=== PATIENT | female | born 1955 | race Caucasian/White ===

== ENCOUNTER → 2017-01-27 | Outpatient (CLI) | payer OTHER ==
--- NOTE | 2017-01-27 13:02 | XR ---
EXAMINATION TYPE: XR abdomen 2V DATE OF EXAM: 01/27/2017 COMPARISON: NONE HISTORY: Right lower quadrant pain TECHNIQUE: One view abdominal series FINDINGS: The osseous structures are intact. The bowel gas pattern is nonspecific. Lung bases are clear. Nons pecific calcification in the left upper quadrant. Outside the course of the kidney. Calcifications in pelvis are nonspecific. Degenerative change lower lumbar spine. IMPRESSION: 1. Nonspecific abdomen. Nonspecific calcifications in the pelvis and left upper quadrant. Correlate with CT scan as clinically warranted.
== END | disposition home or self-care (01) ==
LOC: RADXRYALE 12:37
PROVIDERS: ATTEND Physician Assistant Medical
DX: R10.813 Right lower quadrant abdominal tenderness (principal); R19.7 Diarrhea, unspecified
CPT/HCPCS: 74020

== ENCOUNTER → 2018-05-22 | Outpatient (CLI) | payer OTHER ==
[2018-05-22 12:59] LABS: Basophils % (A) 1 %; Eosinophils # (A) 0.4 k/uL (0-0.7); Eosinophils % (A) 5 %; HCT 42.4 % (34.0-46.0); HGB 14.4 gm/dL (11.4-16.0); Lymphocytes # (A) 1.6 k/uL (1.0-4.8); Lymphocytes % (A) 20 %; MCH 32.3 pg (25.0-35.0); MCHC 34.1 g/dL (31.0-37.0); MCV 94.8 fL (80.0-100.0); Mean Platelet Volume 7.5; Monocytes # (A) 0.4 k/uL (0-1.0); Monocytes % (A) 5 %; Neutrophils # (A) 5.3 k/uL (1.3-7.7); Neutrophils % (A) 68 %; Platelet Count 208 k/uL (150-450); RBC 4.47 m/uL (3.80-5.40); RDW 12.9 % (11.5-15.5); WBC 7.9 k/uL (3.8-10.6)
--- NOTE | 2018-05-22 14:57 | NM ---
EXAMINATION TYPE: NM bone/joint limited DATE OF EXAM: 05/22/2018 COMPARISON: NONE HISTORY: M25.561 Pain in right knee;Attn; Right knee 25.8 mCi was administered of technetium 99m MDP multiple whole body images were obtained as well as s pot images of the knees. FINDINGS: There is degenerative uptake about the shoulders, sternoclavicular joints, lower lumbar spine, hips a nd mid feet compatible with degenerative uptake. Bilateral total knee arthroplasty defects are noted. There is increased uptake along the tibial component of the right knee prosthesis which may reflect infection or loosening. No abnormal femoral uptake seen. No intense uptake to suggest fracture or les ion. IMPRESSION: 1. Degenerative uptake. 2. Increased uptake along the tibial component of the right total knee arthroplasty which may reflect loosening or infection. Correlate clinically.
[2018-05-22 15:31] LABS: Erythrocyte Sedimentation Rate 14 mm/hr (0-20)
== END ==
LOC: RADNMMAIN 10:24
PROVIDERS: ATTEND Orthopaedic Surgery
DX: R93.7 Abnormal findings on diagnostic imaging of other parts of musculoskeletal system (principal); Z47.1 Aftercare following joint replacement surgery; M25.561 Pain in right knee; M25.661 Stiffness of right knee, not elsewhere classified; Z96.651 Presence of right artificial knee joint
CPT/HCPCS: 85652; 85025; 86140; 78300; 36415; A9503

== ENCOUNTER → 2018-07-05 | Outpatient (CLI) | payer OTHER ==
[2018-07-05 16:32] LABS: ALT 36 U/L (9-52); AST 24 U/L (14-36); Alkaline Phosphatase 89 U/L (38-126); Anion Gap 10 mmol/L; Blood Urea Nitrogen 11 mg/dL (7-17); Calcium 9.8 mg/dL (8.4-10.2); Carbon Dioxide 31 mmol/L (22-30); Chloride 97 mmol/L (98-107); Glucose 314 mg/dL (74-99); Potassium 3.5 mmol/L (3.5-5.1); Sodium 138 mmol/L (137-145); Total Bilirubin 0.8 mg/dL (0.2-1.3); Total Protein 6.7 g/dL (6.3-8.2)
[2018-07-05 16:34] LABS: Partial Thromboplastin Time 24.1 sec (22.0-30.0); Prothrombin Time 10.3 sec (9.0-12.0)
[2018-07-05 16:47] LABS: HGB 14.6 gm/dL (11.4-16.0); MCH 32.6 pg (25.0-35.0); MCHC 33.9 g/dL (31.0-37.0); MCV 95.9 fL (80.0-100.0); Mean Platelet Volume 7.5; Platelet Count 275 k/uL (150-450); RBC 4.48 m/uL (3.80-5.40); RDW 12.6 % (11.5-15.5); WBC 8.9 k/uL (3.8-10.6)
[2018-07-05 17:34] LABS: Appearance,Urine Clear (Clear); Bilirubin,Urine Negative (Negative); Blood,Urine Negative (Negative); Color,Urine Yellow; Glucose,Urine (UA) 4+ (Negative); Ketones,Urine Negative (Negative); Leukocyte Esterase,Urine Negative (Negative); Nitrite,Urine Negative (Negative); PH, Urine 5.5 (5.0-8.0); Protein,Urine Negative (Negative); Specific Gravity,Urine 1.025 (1.001-1.035); Urobilinogen,Urine <2.0 mg/dL (<2.0)
== END | disposition home or self-care (01) ==
LOC: LABPAT 15:47
PROVIDERS: ATTEND Orthopaedic Surgery
DX: Z01.812 Encounter for preprocedural laboratory examination (principal)
CPT/HCPCS: 36415; 80053; 81003; 85027; 85610; 85730; 87070

== ENCOUNTER 2018-07-16 11:14 | Inpatient (IN) | payer OTHER ==
[~2018-07-16 11:14] MED LIST: ACETAMINOPHEN TAB 500 MG TAB PO ONE; DEXAMETHASONE SOD PHOSPHATE 10 MG/ML 1 ML VIAL IV ONE; LIDOCAINE 1% 20 ML VIAL (10MG/ML) FOR IV START INTRADERMA PRN; MELOXICAM 7.5 MG TAB PO ONE; MIDAZOLAM 2 MG/2 ML VIAL IV PRN; ONDANSETRON 4 MG/2 ML VIAL IVP ONE; ROPIVACAINE 246.25 MG, EPINEPHrine 0.5 MG, KETOROLAC 30 MG, cloNIDine HCL/PF 80 MCG, WA... MISCELLANE ONE; TRANEXAMIC ACID 1,000 MG in SODIUM CHLORIDE 0.9% 100 ML IVPB ONE; ceFAZolin 3 GM in SODIUM CHLORIDE 0.9% 100 ML IVPB ONE; fentaNYL (PF) 50 MCG/ML 2 ML AMP IV PRN
[2018-07-16] MEDS: LACTATED RINGERS 1,000 ML IV SCH (11:40)
[2018-07-16 11:43] LABS: Glucose,Whole Blood 210 mg/dL (75-99)
[2018-07-16] MEDS ORDERED: INSULIN ASPART (NovoLOG) 100 UNIT/ML VIAL SQ ONE (12:16)
[2018-07-16] MEDS ORDERED: NA PHOS,M-B/NA PHOS,DI-BA 133 ML ENEMA RECTAL PRN (13:00)
[2018-07-16] MEDS ORDERED: NALOXONE 0.4 MG/ML 1 ML VIAL IV PRN (13:00)
[2018-07-16] MEDS ORDERED: DIAZEPAM 5 MG TAB PO PRN (13:00)
[2018-07-16] MEDS ORDERED: MAGNESIUM HYDROXIDE 2,400 MG/10 ML CUP PO PRN (13:00)
[2018-07-16] MEDS ORDERED: HYDROmorphone 1 MG/ML 1 ML SYRINGE IVP PRN (13:00)
[2018-07-16] MEDS ORDERED: ONDANSETRON 4 MG/2 ML VIAL IVP PRN (13:00)
[2018-07-16] MEDS ORDERED: BISACODYL 10 MG SUPP RECTAL PRN (13:00)
[2018-07-16] MEDS ORDERED: HYDROmorphone 0.5 MG/0.5 ML SYRINGE IVP PRN ×2 (13:00)
[2018-07-16] MEDS ORDERED: HYDROcodone/APAP 5-325MG 1 EACH TAB PO PRN (13:00)
[2018-07-16] MEDS ORDERED: LIDOCAINE 1% INJ 10MG/ML (20 ML MDV) ONE (13:02)
[2018-07-16] MEDS ORDERED: PHENYLEPHRINE-0.9% NACL SYG 1 MG/10 ML SYRINGE ONE (13:02)
[2018-07-16] MEDS ORDERED: TRANEXAMIC ACID 1,000 MG/10 ML VIAL ONE (13:02)
[2018-07-16] MEDS ORDERED: fentaNYL (PF) 50 MCG/ML 2 ML AMP ONE (13:02)
[2018-07-16] MEDS ORDERED: PROPOFOL 10 MG/ML 20 ML VIAL IV ONE (13:02)
[2018-07-16] MEDS ORDERED: KETAMINE 10 MG/ML 20 ML VIAL ONE (13:02)
[2018-07-16] MEDS ORDERED: MIDAZOLAM 2 MG/2 ML VIAL ONE (13:02)
[2018-07-16] MEDS ORDERED: SODIUM CHLORIDE 0.9% 100 ML BAG ONE (13:02)
[2018-07-16] MEDS ORDERED: ceFAZolin 3,000 MG in SODIUM CHLORIDE 0.9% IRRIGATIO 3,000 ML IRRIGATION ONE (13:37)
[2018-07-16] MEDS ORDERED: LACTATED RINGERS 1,000 ML IV ONE (14:28)
[2018-07-16] MEDS ORDERED: ROPIVACAINE 1,100 MG, SODIUM CHLORIDE 0.9% 500 ML 330 ML MISCELLANE PRN ×2 (14:45)
--- NOTE | 2018-07-16 14:57 | P.ONQ ---
Anesthesiology Proc Note - PNB - Peripheral Nerve Block Performed Right Adductor Canal Infusion Time Out Performed: Yes Procedure Start Time: 12:01 Procedure Stop Time: 12:10 Indication: Acute Post-Operative Pain, Requested by physician Sedation Type: Sedate with meaningful contact maintained Preparation: Sterile Dressing Position: Supine Catheter: Indwelling Needle Types: On-Q Needle Size: 100mm (4") Needle Gauge: 21 Technique: Ultrasound (ropi .5% 30cc) Blood Aspirated: No Pain Paresthesia on Injection Noted: No Resistance on Injection: Normal Events: Uneventful and Well Tolerated
[2018-07-16 16:32] LABS: Glucose,Whole Blood 140 mg/dL (75-99)
[2018-07-16] MEDS: HYDROmorphone 0.5 MG/0.5 ML SYRINGE IVP PRN ×2 (16:36→16:47)
--- NOTE | 2018-07-16 16:56 | XR ---
EXAMINATION TYPE: XR knee limited RT DATE OF EXAM: 07/16/2018 COMPARISON: 11/25/2014 HISTORY: Postop knee surgery TECHNIQUE: 2 views FINDINGS: There is revision of the right knee prosthesis compared to old exam. Components are in ingrid omic position. IMPRESSION: No complicating process seen.
[2018-07-16] MEDS: metFORMIN 500 MG TAB PO SCH (17:42)
--- NOTE | 2018-07-16 18:15 | P.OP ---
Date of Procedure: 07/16/18 Preoperative Diagnosis: failed right total knee arthroplasty Postoperative Diagnosis: failed right total knee arthroplasty Procedure(s) Performed: revision right total knee arthroplasty Implants: [employer] Oxinium constrainedfemoral component size 5, right [employer] Legion press-fit stem 12 mm x 120 mm [employer] Legion revision right nonporous tibial baseplate size 3 [employer] Legion press-fit stem 10 mm x 120 mm [employer] size 9 mm Legion constrained articular insert, size 3-4 All components were cemented using Michaela bone cement.. The articulation is Oxinium on polyethylene. Anesthesia: spinal Surgeon: Solo Salinas Accounting Teacher #1: Karla Trujillo Estimated Blood Loss (ml): 100 Pathology: other (cultures 2) Condition: stable Disposition: PACU Indications for Procedure: this is a 62-year-old female that had a right total knee arthroplasty performed 11/25/2014. She subsequently developed pain and a bone scan limited to the possibility of tibial loosening. After discussing the surgical and nonsurgical treatment options with her at length she wished to proceed with a revision of the right total knee arthroplasty. Operative Findings: the operative findings are consistent with loosening of the tibial component as well as significant arthrofibrosis with a large amount of scar tissue. Description of Procedure: Patient was seen in the preoperative area consent was reviewed and operative site was marked with a skin marker. An adductor canal pain catheter was placed by anesthesia in the preoperative area. Patient was then brought to the operating room and given preoperative antibiotics intravenously. A spinal anesthetic was administered by the anesthesia department. A tourniquet was placed on the upper thigh and the lower extremity was prepped and draped in usual sterile fashion. A gram of transexamic acid was given. A universal timeout was then performed which confirmed the patient's name, surgical site, ALLERGIES, and consent. The lower extremity was then exsanguinated and tourniquet was inflated to 250 mmHg. A standard and anterior midline approach to the knee was performed with the prior scar being excised. The skin and subcutaneous tissue was dissected down to the patellar tendon. A medial parapatellar arthrotomy was then performed. The knee was then extended, the patellar was everted, and the knee was again flexed. The knee was then cultured 2. The prosthesis was then evaluated and the tibial component was found to be loose. Using a small oscillating saw, the cement implant interface was disrupted and the femoral and tibial components were then removed without difficulty. Next, sequential reaming of the femoral canal was then performed by hand. The femur was then sized and the distal cutting block was then placed in the distal femur was then freshened with a cut. Next the 4-in-1 cutting block was then placed, and set for the appropriate rotation. Anterior posterior chamfer cuts were then performed as well as anterior posterior cuts. The trial femur was then placed with appropriate length stem. Next the box cutting guide was placed in the bone for the box was then reamed and removed. Femoral trial was then removed. Attention was then directed to the tibia. Sequential reaming of the tibial canal was then performed with appropriate size. The intramedullary tibial cutting guide was then placed the tibia was then freshened with a minimal resection. The tibia was then sized and the canal was prepared for the stem. The tibial trial was then placed and found to have a good fit. The femoral trial was then placed as well. Next, the insert trials were then sequentially used until the appropriate-sized insert was reached. Knee was able to fully ex tend and flex to 120 and was stable to varus and valgus and anterior posterior stresses throughout all range of motion. Trials were then removed. The cut surfaces of bone were then irrigated with pulsatile lavage. The posterior structures were injected with the ropivacaine solution. The knee was also irrigated with Irrisept solution. The components were then opened, the cement was mixed, and the components were then cemented in place. The cement was allowed to harden with the knee in full extension. While the cement was hardening, the remaining soft tissues were then injected with a ropivacaine solution, which consisted of 246.25 mg of ropivacaine, 0.5 mg of epinephrine, 30 mg of Toradol, 80 g of clonidine, and 48.45 mL of sterile water, for a total of 100 mL of fluid injected. After the cemented hardened. The tourniquet was released, and hemostasis was obtained. A second gram of transexamic acid was given. The knee was again irrigated. The knee was again taken through range of motion and found to be stable throughout all range of motion of 0-130, and the patella tracked normally. The fascia was then closed with #2 strata fix suture. The subcutaneous tissue was closed with 3-0 Vicryl and 3-0 strata fix. Dermabond glue was used for the skin and placed with the knee in flexion. The patient was placed in a sterile silver dressing. Patient was then transferred to recovery room in stable condition. The electrician's assistant STEPHANIE Dyson was required due the complexity surgery and the need for a skilled surgical elastic knitter. She assisted in positioning, draping, retraction, and closure of the wound.
[2018-07-16] MEDS: SODIUM CHLORIDE 0.9% 1,000 ML IV SCH (18:52)
[2018-07-16] MEDS: INSULIN ASPART (NovoLOG) 100 UNIT/ML VIAL SQ SCH ×2 (18:53→21:14)
[2018-07-16] MEDS: ATORVASTATIN 40 MG TAB PO SCH (20:24)
[2018-07-16] MEDS: PIOGLITAZONE 30 MG TAB PO SCH (20:24)
[2018-07-16] MEDS: ASPIRIN 325 MG TAB PO SCH (20:24)
[2018-07-16] MEDS: ceFAZolin 3 GM in SODIUM CHLORIDE 0.9% 100 ML IVPB SCH (20:25)
[2018-07-16] MEDS: SENNOSIDES-DOCUSATE SODIUM 1 EACH TAB PO SCH (20:25)
[2018-07-16] MEDS: HYDROcodone/APAP 5-325MG 1 EACH TAB PO PRN (20:29)
[2018-07-16 20:50] LABS: Glucose,Whole Blood 253 mg/dL (75-99)
[2018-07-17] MEDS: SODIUM CHLORIDE 0.9% 1,000 ML IV SCH (02:15)
[2018-07-17] MEDS: ceFAZolin 3 GM in SODIUM CHLORIDE 0.9% 100 ML IVPB SCH (04:06)
[2018-07-17] MEDS: HYDROcodone/APAP 5-325MG 1 EACH TAB PO PRN (04:06)
[2018-07-17] MEDS: LEVOTHYROXINE 88 MCG TAB PO SCH (04:07)
[2018-07-17] MEDS: LACTATED RINGERS 1,000 ML IV SCH (05:29)
--- NOTE | 2018-07-17 07:13 | P.PN ---
Progress Note - Text 07/17 643am 62-year-old female status post total knee replacement by Dr. Solo way. Patient has an On-Q pump for postop pain control with a VAS of 3. Plan to continue On-Q pump infusion
[2018-07-17 07:15] LABS: Glucose,Whole Blood 185 mg/dL (75-99)
--- NOTE | 2018-07-17 07:24 | CONS ---
CONSULTATION DATE OF SERVICE: 07/16/2018 REASON FOR CONSULTATION: Advice regarding diabetes mellitus. HISTORY OF PRESENT ILLNESS: This is a 62-year-old woman with a past medical history of diabetes, hypertension, hyperlipidemia, DJD, sleep apnea, being followed by Dr. Blevins in the outpatient setting, underwent revision of the right total knee arthroplasty but failed right total knee arthroplasty. The patient was closely and patient is slightly drowsy after surgery. There is no history of fever or rigors. No history of any headache, loss of consciousness, chest pain, palpitations at this time. PAST MEDICAL HISTORY: History of diabetes, hypertension, hyperlipidemia, DJD, sleep apnea, history of adenoidectomy. MEDICATIONS: Prior to admission, home medications are:: 1. Metformin 1000 mg p.o. b.i.d. 2. Actos 30 mg q.h.s. 4. Hyzaar 100/25 mg q.h.s. 5. Synthroid 88 mcg p.o. daily. 6. Motrin 800 mg p.o. t.i.d. 7. Lexapro 20 mg q.a.m. 8. Vitamin D3 five thousand daily. 9. Lipitor 40 mg q.h.s. ALLERGIES: None. FAMILY HISTORY: History of cancer in the family. SOCIAL HISTORY: No history of smoking, no history of alcohol. REVIEW OF SYSTEMS: ENT: No diminished hearing or vision. CARDIOVASCULAR: No angina or palpitations. RESPIRATORY: As mentioned earlier. GI: No nausea. : No dysuria. NERVOUS SYSTEM: No numbness or weakness. ALLERGY/IMMUNOLOGY: No asthma. MUSCULOSKELETAL: As mentioned earlier. RHEUMATOLOGY: As mentioned earlier. ENDOCRINE: hypothyroidism CONSTITUTIONAL: Negative. DERMATOLOGY: Negative. PSYCHIATRY: mentioned earlier. PHYSICAL EXAMINATION: Patient is alert and oriented x3. Pulse is 82, blood pressure 131/72, respiration 18, temp 97.8, pulse ox 97% on 2 L. HEENT: Conjunctivae normal. NECK: No jugular venous distension. CARDIOVASCULAR: S1, S2, muffled. RESPIRATORY: Breath sounds diminished at the bases, no rhonchi, no crackles. ABDOMEN: Soft, nontender. LEGS: Status post knee joint surgery. NERVOUS SYSTEMS: No focal deficits. LABS: Which were done previously showed CBC within normal limits. Otherwise, chemistry noted. Cholesterol 207, LDL 135, BUN exam also noted. ASSESSMENT: 1. 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 2. Diabetes mellitus type 2. 3. Hypertension. 4. Hyperlipidemia. 5. History of degenerative joint disease. 6. Sleep apnea. 7. Hypothyroidism. 8. History of melanoma. 9. History of adenoidectomy. 10.History of anxiety. 11.Obesity with body mass index of 45.2. 12.FULL CODE. RECOMMENDATION: In this 62-year-old woman who presented with multiple issues, at this time I recommend to continue current management and symptomatic treatment. Otherwise, at this time I recommend resume the home medications. Monitor blood sugars closely. Accu- Cheks a.c. and at bedtime and I would also recommend for DVT prophylaxis. Follow the patient closely. The patient will be asked to follow with Dr. Blevins closely after discharge. Thank you Dr. Salinas, for letting us participate in the care of patient. PEEL / SHANICEN: [id number] / MTDD
[2018-07-17] MEDS: LOSARTAN-HCTZ 50-12.5 MG 1 EACH TAB PO SCH (07:44)
[2018-07-17] MEDS: CHOLECALCIFEROL 1,000 UNIT TAB PO SCH (07:44)
[2018-07-17] MEDS: ASPIRIN 325 MG TAB PO SCH ×2 (07:44→20:14)
[2018-07-17] MEDS: MELOXICAM 7.5 MG TAB PO SCH (07:44)
[2018-07-17] MEDS: metFORMIN 500 MG TAB PO SCH ×2 (07:45→17:30)
[2018-07-17] MEDS: ESCITALOPRAM 20 MG TAB PO SCH (07:45)
[2018-07-17] MEDS: INSULIN ASPART (NovoLOG) 100 UNIT/ML VIAL SQ SCH ×4 (07:45→20:17)
[2018-07-17 08:38] LABS: Basophils % (A) 0 %; Eosinophils # (A) 0.2 k/uL (0-0.7); Eosinophils % (A) 2 %; HGB 12.6 gm/dL (11.4-16.0); Lymphocytes # (A) 1.3 k/uL (1.0-4.8); Lymphocytes % (A) 11 %; Mean Platelet Volume 7.3; Monocytes # (A) 0.5 k/uL (0-1.0); Monocytes % (A) 4 %; Neutrophils # (A) 9.5 k/uL (1.3-7.7); Neutrophils % (A) 82 %; Platelet Count 231 k/uL (150-450); RBC 3.82 m/uL (3.80-5.40); RDW 12.7 % (11.5-15.5); WBC 11.6 k/uL (3.8-10.6)
[2018-07-17 11:45] LABS: Glucose,Whole Blood 180 mg/dL (75-99)
[2018-07-17] MEDS ORDERED: HYDROcodone/APAP 7.5-325MG 1 EACH TAB PO PRN (11:52)
--- NOTE | 2018-07-17 12:21 | P.PN ---
Subjective Progress Note Date: 07/17/18 This is a 62-year-old female who is status post revision right total knee arthroplasty. This is postoperative day #1 and patient is seen and evaluated at bedside with Dr. Solo Salinas. Patient states that her pain is controlled. Patient denies any fever/chills, numbness, weakness, tingling, abdominal pain, shortness of breath or chest pain. Objective - Vital Signs Vital signs: Vital Signs Temp 98.3 F 07/17/18 07:00 Pulse 83 07/17/18 07:00 Resp 17 07/17/18 07:00 BP 121/73 07/17/18 07:00 Pulse Ox 93 L 07/17/18 07:00 Intake & Output 07/16/18 07/17/18 07/17/18 18:59 06:59 18:59 Intake Total 1701 1240 240 Output Total 100 Balance 1601 1240 240 Intake: IV 1701 Intake, IV Titration 700 Amount Sodium Chloride 0.9% 1, 700 000 ml @ 70 mls/hr IV . [id number] [facility] Rx#:[id number] Oral 540 240 Output: Estimated Blood Loss 100 Other: Voiding Method Toilet Bedside Commode # Voids 1 - Exam Vital signs are stable. Patient is in no acute distress and is alert and oriented 3. Calf is soft and nontender to palpation. Dressing is clean, dry, and intact. Patient has full foot and ankle motion without pain or difficulty. Neurovascular status and circulatory status are intact. - Labs CBC & Chem 7: 07/17/18 07:26 Labs: Abnormal Lab Results - Last 24 Hours (Table) 07/16/18 07/16/18 07/17/18 Range/Units 16:29 20:38 07:04 WBC (3.8-10.6) k/uL Neutrophils # (1.3-7.7) k/uL POC Glucose (mg/dL) 140 H 253 H 185 H (75-99) mg/dL 07/17/18 07/17/18 Range/Units 07:26 11:27 WBC 11.6 H (3.8-10.6) k/uL Neutrophils # 9.5 H (1.3-7.7) k/uL POC Glucose (mg/dL) 180 H (75-99) mg/dL Microbiology - Last 24 Hours (Table) 07/16/18 13:45 Gram Stain - Preliminary Knee - Right Wound Culture - Preliminary 07/16/18 13:45 Anaerobic Culture - Preliminary Knee - Right Assessment and Plan Assessment: History of cancer Diabetes mellitus Hyperlipidemia Hypertension Osteoarthritis Sleep apnea Thyroid disorder (1) Status post revision of total knee replacement Current Visit: Yes Status: Acute Code(s): Z96.659 - PRESENCE OF UNSPECIFIED ARTIFICIAL KNEE JOINT SNOMED Code(s): 9727366586964 (2) Failed total knee arthroplasty Current Visit: Yes Status: Acute Code(s): T84.018A - BROKEN INTERNAL JOINT PROSTHESIS, OTHER SITE, INIT ENCNTR; Z96.659 - PRESENCE OF UNSPECIFIED ARTIFICIAL KNEE JOINT SNOMED Code(s): 628029555 Plan: #1 Continue with routine postoperative care and pain control, leave dressing in place for ten days. #2 Anticoagulation with aspirin. #3 Physical therapy and CPM today. #4 Appreciate input from medicine. #5 Anticipate discharge home with home care likely tomorrow.
[2018-07-17] MEDS: HYDROcodone/APAP 7.5-325MG 1 EACH TAB PO PRN ×2 (14:58→20:15)
[2018-07-17 16:22] LABS: Glucose,Whole Blood 216 mg/dL (75-99)
[2018-07-17 20:12] LABS: Glucose,Whole Blood 200 mg/dL (75-99)
[2018-07-17] MEDS: ATORVASTATIN 40 MG TAB PO SCH (20:14)
[2018-07-17] MEDS: hydrOXYzine PAMOATE 25 MG CAP PO PRN (20:14)
[2018-07-17] MEDS: SENNOSIDES-DOCUSATE SODIUM 1 EACH TAB PO SCH (20:17)
[2018-07-17] MEDS: PIOGLITAZONE 30 MG TAB PO SCH (20:31)
--- NOTE | 2018-07-17 23:10 | PN ---
PROGRESS NOTE DATE OF SERVICE: 07/17/2018. HISTORY: This 62-year-old woman who was admitted after revision of the right total knee arthroplasty for failed right total knee arthroplasty is being closely monitored. No chest pain. No palpitation. EXAM: Alert and oriented x3. Pulse 91, blood pressure 130/60, respirations 17, temperature 98.1, pulse ox 94% on room air HEENT: Conjunctivae normal. Oral mucosa is moist. NECK: No jugular venous distention. No lymph node enlargement. CARDIOVASCULAR: S1 and S2 muffled. LUNGS: Breath sounds diminished at the bases. No rhonchi, no crackles. ABDOMEN: Soft, nontender. EXTREMITIES: Legs status post surgery. NERVOUS SYSTEM: No focal deficits. LABS: WBC 11.0 and hemoglobin 12.6. Accu-Cheks 216 and 200. ASSESSMENT: 1. Status post revision of the right total knee arthroplasty with failed right total knee arthroplasty. 2. Diabetes type 2. 3. Hypertension. 4. Hyperlipidemia. 5. History of degenerative joint disease. 6. Sleep apnea. 7. Hypothyroidism. 8. History of melanoma. 9. History of adenoidectomy. 10.History of anxiety. 11.Obesity with body mass index of 45.6. 12.Full code. RECOMMENDATIONS: Recommend to continue current management and symptomatic treatment. I would recommend to monitor blood sugars closely. Blood sugar slightly elevated. Continue insulin drip and insulin scale. The patient was not on insulin previously. I would also recommend a hemoglobin A1c if not done previously. Otherwise, continue the rest of the medications. DVT prophylaxis. Closely follow with Orthopedic Surgery. Follow closely. Further recommendations to follow. MMODL / IJN: [id number] /
[2018-07-18] MEDS: HYDROcodone/APAP 7.5-325MG 1 EACH TAB PO PRN ×3 (01:49→14:04)
[2018-07-18] MEDS: hydrOXYzine PAMOATE 25 MG CAP PO PRN ×3 (01:50→14:03)
[2018-07-18 05:44] LABS: Hemoglobin A1C 9.4 % (4.0-6.0)
[2018-07-18] MEDS: LEVOTHYROXINE 88 MCG TAB PO SCH (05:45)
[2018-07-18 07:09] LABS: Glucose,Whole Blood 194 mg/dL (75-99)
[2018-07-18 07:37] VITALS: BP 136/75; PULSE 81; RESP 15; TEMP 97.6
[2018-07-18] MEDS: INSULIN ASPART (NovoLOG) 100 UNIT/ML VIAL SQ SCH ×2 (08:16→12:38)
[2018-07-18] MEDS: LACTATED RINGERS 1,000 ML IV SCH (08:16)
[2018-07-18] MEDS: ASPIRIN 325 MG TAB PO SCH (08:23)
[2018-07-18] MEDS: LOSARTAN-HCTZ 50-12.5 MG 1 EACH TAB PO SCH (08:23)
[2018-07-18] MEDS: ESCITALOPRAM 20 MG TAB PO SCH (08:23)
[2018-07-18] MEDS: MELOXICAM 7.5 MG TAB PO SCH (08:23)
[2018-07-18] MEDS: metFORMIN 500 MG TAB PO SCH (08:23)
[2018-07-18] MEDS: CHOLECALCIFEROL 1,000 UNIT TAB PO SCH (08:23)
[2018-07-18] MEDS ORDERED: KETOROLAC 30 MG/ML 1 ML VIAL IVP PRN (08:29)
--- NOTE | 2018-07-18 09:06 | P.DS ---
Providers Date of admission: 07/16/18 11:14 Expected date of discharge: 07/18/18 Attending physician: Solo Salinas Consults: 07/16/18 13:00 Consult Physician Routine Consulting Provider: Kristyn Camp Consult Reason/Comments: medical management Do you want consulting provider notified?: Yes Primary care physician: Solo Blevins - Discharge Diagnosis(es) (1) Status post revision of total knee replacement Current Visit: Yes Status: Acute (2) Failed total knee arthroplasty Current Visit: Yes Status: Acute Hospital Course: This is a 62-year-old female who underwent right total knee arthroplasty on 11/25/2014. Patient presented for evaluation as an outpatient due to increased pain. A bone scan revealed possible loosening of the tibial component. After discussion and consideration patient elects to proceed with revision right total knee arthroplasty. The patient is seen preoperatively by Dr. Salinas and medically cleared for surgery by their primary care physician. Patient is admitted to [facility] on 07/16/2018 for revision right total knee arthroplasty. The procedures performed without complication or sequelae. The patient is doing well postoperatively. Labs and vital signs are stable on day of discharge. On day of discharge patient's knee incision is healing well. There is minimal erythema. There is no drainage noted at this time. There is minimal soft tissue swelling to the knee. Patient has full foot and ankle motion without difficulty or pain. Calf is soft and nontender to palpation. Neurovascular status to the right lower extremity is intact. Patient is discharged home in good condition. Opioid start talking form is reviewed and signed at patient bedside. Please see med rec for accurate list of home medications. Plan - Discharge Summary Discharge Rx Participant: Yes New Discharge Prescriptions: New Aspirin 325 mg PO BID #60 tab HYDROcodone/APAP 7.5-325MG [[place] 7.5-325] 1 - 2 tab PO Q6H PRN #56 tab PRN Reason: Pain Sennosides [Senokot] 1 tab PO BID #60 tablet Ketorolac [Toradol] 10 mg PO Q6HR #12 tab hydrOXYzine PAMOATE [Vistaril] 25 mg PO Q6H PRN #12 capsule PRN Reason: Pain No Action Cholecalciferol [Vitamin D3 (25 Mcg = 1000 Iu)] 5,000 unit PO DAILY Atorvastatin [Lipitor] 40 mg PO HS Pioglitazone [Actos] 30 mg PO HS Escitalopram [Lexapro] 20 mg PO QAM metFORMIN HCL 1,000 mg PO BID Losartan/Hydrochlorothiazide [Hyzaar 100-25 Tablet] 1 each PO QAM Naproxen Sodium [Aleve] 660 - 880 mg PO DAILY PRN PRN Reason: Pain Ibuprofen [Motrin] 800 mg PO TID PRN PRN Reason: Pain Levothyroxine Sodium [Synthroid] 88 mcg PO DAILY Discharge Medication List Cholecalciferol [Vitamin D3 (25 Mcg = 1000 Iu)] 5,000 unit PO DAILY 11/14/14 [History] Atorvastatin [Lipitor] 40 mg PO HS 07/06/18 [History] Escitalopram [Lexapro] 20 mg PO QAM 07/06/18 [History] Losartan/Hydrochlorothiazide [Hyzaar 100-25 Tablet] 1 each PO QAM 07/06/18 [History] Pioglitazone [Actos] 30 mg PO HS 07/06/18 [History] metFORMIN HCL 1,000 mg PO BID 07/06/18 [History] Ibuprofen [Motrin] 800 mg PO TID PRN 07/11/18 [History] Naproxen Sodium [Aleve] 660 - 880 mg PO DAILY PRN 07/11/18 [History] Levothyroxine Sodium [Synthroid] 88 mcg PO DAILY 07/16/18 [History] Aspirin 325 mg PO BID #60 tab 07/18/18 [Rx] HYDROcodone/APAP 7.5-325MG [[place] 7.5-325] 1 - 2 tab PO Q6H PRN #56 tab 07/18/18 [Rx] Ketorolac [Toradol] 10 mg PO Q6HR #12 tab 07/18/18 [Rx] Sennosides [Senokot] 1 tab PO BID #60 tablet 07/18/18 [Rx] hydrOXYzine PAMOATE [Vistaril] 25 mg PO Q6H PRN #12 capsule 07/18/18 [Rx] Follow up Appointment(s)/Referral(s): Solo Salinas DO [Doctor of Osteopathic Medicine] - 07/27/18 1:10 pm Solo Blevins DO [Primary Care Provider] - 2 Weeks Ambulatory/Diagnostic Orders: Continuous Passive Motion (CPM) Machine [DME.AMB1] Time Frame: 3 Weeks, Location: None Selected Ambulatory Physical Therapy Order [THER.AMB] Location: None Selected Activity/Diet/Wound Care/Special Instructions: Patient will start outpatient physical therapy at discharge, no needs for home care/physical therapy at home. Weightbearing as tolerated with a walker. CPM 5-6h daily. Leave dressing intact. May be removed by home care nurse or by patient in 10 days. May shower with dressing on. Please follow up with [facility] and call with any questions or concerns, . Discharge Disposition: HOME SELF-CARE
[2018-07-18 11:52] VITALS: BMI 45.1
[2018-07-18 12:08] LABS: Glucose,Whole Blood 176 mg/dL (75-99)
--- NOTE | 2018-07-18 15:34 | PN ---
PROGRESS NOTE DATE OF SERVICE: 07/18/2018 This 62-year-old woman was admitted after revision of the right total knee arthroplasty, improved significantly. No chest pain. No palpitations. No fever. PHYSICAL EXAM: Alert and oriented x3, pulse 81, blood pressure 130/70, respiration 16, temperature 97.6, pulse ox 98% on room air skin: Normal neck tension neck No nodes cardiac status post respiration the bases abdomen soft, nontender. No mass palpable legs status post surgery nervous system: No focal deficits. LABS: At this time shows Accu-Cheks are 201, 94 and 176. Hemoglobin A1c is 9.4. ASSESSMENT: 1. Status post revision of the right total knee arthroplasty. Failed right total knee arthroplasty. 2. Diabetes mellitus type 2. 3. Hemoglobin A1c 9.4. 4. Hypertension. 5. Hyperlipidemia. 6. History of degenerative joint disease. 7. Sleep apnea. 8. Chronic obstructive pulmonary disease. 9. History hypothyroidism history of melanoma. 10.History of adenoidectomy history anxiety. 11.Obesity with body mass index 45.6. 12.FULL CODE. RECOMMENDATIONS AND DISCUSSION: I recommend to continue current medications, symptomatic treatment. I would recommend continue the current medication. Monitor Accu-Cheks a.c. and bedtime and closely follow. Follow with primary physician. Otherwise, continue rest of medications, incentive spirometry and DVT prophylaxis. Further recommendations to follow. MMODL / IJN: [id number] /
== END 2018-07-18 16:03 | disposition home or self-care (01) | DRG 467 ==
LOC: 2ORMAIN 11:14 → 4SSUR 15:51
PROVIDERS: ADMIT Orthopaedic Surgery; ATTEND Orthopaedic Surgery
PROC: 0SRC0JA Replacement of Right Knee Joint with Synthetic Substitute, Uncemented, Open Approach (ICD-10-PCS; 2018-07-16)
PROC: 0SPC0JZ Removal of Synthetic Substitute from Right Knee Joint, Open Approach (ICD-10-PCS; principal; 2018-07-16 12:30)
DX: T84.032A Mechanical loosening of internal right knee prosthetic joint, initial encounter (principal); Z68.42 Body mass index [BMI] 45.0-49.9, adult; F33.0 Major depressive disorder, recurrent, mild; E66.9 Obesity, unspecified; E11.9 Type 2 diabetes mellitus without complications; G47.33 Obstructive sleep apnea (adult) (pediatric); E78.2 Mixed hyperlipidemia; I10 Essential (primary) hypertension; J44.9 Chronic obstructive pulmonary disease, unspecified; E55.9 Vitamin D deficiency, unspecified; E03.9 Hypothyroidism, unspecified; M19.90 Unspecified osteoarthritis, unspecified site; F41.9 Anxiety disorder, unspecified; Z79.84 Long term (current) use of oral hypoglycemic drugs; Z79.890 Hormone replacement therapy; Z79.899 Other long term (current) drug therapy; Z71.3 Dietary counseling and surveillance; Z85.820 Personal history of malignant melanoma of skin; Z96.652 Presence of left artificial knee joint; Z98.890 Other specified postprocedural states; Y79.2 Prosthetic and other implants, materials and accessory orthopedic devices associated with adverse incidents; Z80.9 Family history of malignant neoplasm, unspecified
CPT/HCPCS: 83036; 85025; 87070; 87075; 87205; 88305; 88311

== ENCOUNTER → 2019-10-10 | Outpatient (CLI) | payer OTHER ==
--- NOTE | 2019-10-10 12:17 | US ---
EXAMINATION TYPE: US abdomen complete DATE OF EXAM: 10/10/2019 COMPARISON: NONE CLINICAL HISTORY: R10.11 R upper quad pain. Intermittent abdomen pain x 8 months, gotten worse in the last 6 weeks EXAM MEASUREMENTS: Liver Length: 21.3 cm Gallbladder Wall: 0.2 cm CBD: 0.4 cm Spleen: 13.5 cm Right Kidney: 11.5 x 5.8 x 5.5 cm Left Kidney: 11.8 x 4.9 x 5.4 cm Difficult and limited study due to patient body habitus Pancreas: visualized portions wnl, limited by overlying midline bowel gas Liver: enlarged, attenuating, mildly heterogeneous Gallbladder: wnl Evidence for sonographic Almazan's sign: no CBD: visualized portions wnl, limited by overlying bowel gas Spleen: mildly enlarged Right Kidney: wnl Left Kidney: wnl Upper IVC: wnl Abd Aorta: visualized portions wnl, limited by overlying midline bowel gas The liver shows no mass. The intrahepatic portion of the IVC and proximal abdominal aorta are within normal limits. There is no evidence of cholelithiasis. Common bile duct is unremarkable. The visu alized portions of the pancreas are homogenous. The spleen is enlarged. Kidneys are symmetric and f ree of hydronephrosis, kidneys show normal cortical medullary differentiation. No renal lesions are seen. IMPRESSION: Correlate for hepatic steatosis, hepatocellular disease. Hepatosplenomegaly
== END | disposition home or self-care (01) ==
LOC: RADUSWWP 10:44
PROVIDERS: ATTEND Family Medicine
DX: R16.2 Hepatomegaly with splenomegaly, not elsewhere classified (principal)
CPT/HCPCS: 76700

== ENCOUNTER → 2020-04-29 | Outpatient (CLI) | payer OTHER ==
--- NOTE | 2020-04-29 12:17 | XR ---
EXAMINATION TYPE: XR shoulder complete LT DATE OF EXAM: 04/29/2020 CLINICAL HISTORY: pain COMPARISON: NONE TECHNIQUE: Three views of the left shoulder are obtained. FINDINGS: There is no acute fracture/dislocation evident. Severe narrowing of the left glenohumeral joint space with loose bodies noted.. The visualized ribs are intact and unremarkable. IMPRESSION: 1. There is no acute fracture or dislocation. ICD 10 NO FRACTURE, INITIAL EVALUATION
== END | disposition home or self-care (01) ==
LOC: RADXRYALE 11:53
PROVIDERS: ATTEND Physician Assistant Medical
DX: M25.512 Pain in left shoulder (principal)

== ENCOUNTER → 2020-08-06 | Outpatient (CLI) | payer OTHER ==
--- NOTE | 2020-08-06 12:46 | XR ---
EXAMINATION TYPE: XR chest 2V DATE OF EXAM: 08/06/2020 COMPARISON: NONE HISTORY: Increasing shortness of breath for 3 weeks. TECHNIQUE: Frontal and lateral views of the chest are obtained. FINDINGS: Mild borderline cardiomegaly. Atherosclerotic aortic knob. No focal consolidation, pneumot horax or pleural effusion. Degenerative changes of the thoracic spine are seen. IMPRESSION: 1. No acute pulmonary disease. Borderline cardiomegaly.
== END | disposition home or self-care (01) ==
LOC: RADXRYALE 12:03
PROVIDERS: ATTEND Physician Assistant Medical
DX: I51.7 Cardiomegaly (principal)
CPT/HCPCS: 71046

== ENCOUNTER → 2020-08-06 | Outpatient (CLI) | payer OTHER ==
[2020-08-06 15:04] LABS: African American GFR (CKD) >90 (>60 ml/min/1.73 sqM); Blood Urea Nitrogen 13 mg/dL (7-17); Non-African American GFR(CKD) >90 (>60 ml/min/1.73 sqM)
--- NOTE | 2020-08-06 15:41 | CT ---
EXAMINATION TYPE: CT chest angio for PE DATE OF EXAM: 08/06/2020 COMPARISON: Chest x-ray earlier today HISTORY: Tachycardia and shortness of breath. CT DLP: 626.9 mGycm Automated exposure control for dose reduction was used. CONTRAST: CT Chest for pulmonary embolism performed with with IV Contrast, patient injected with 75ml mL of Iso kailash 370. FINDINGS: LUNGS: The lungs are grossly clear, there is no concerning parenchymal mass or nodule identified. T here is no pleural effusion or pneumothorax seen. The tracheobronchial tree is patent. MEDIASTINUM: There is suboptimal bolus with most dense contrast in the SVC. No large saddle central p ulmonary embolism. Suboptimal evaluation of lobar along with segmental and subsegmental pulmonary emb aren. Satisfactory enhancement of the aorta without aneurysm or dissection. There are no greater than 1 cm hilar or mediastinal lymph nodes. No pericardial effusion is seen. Mild cardiomegaly. OTHER: No additional significant abnormality is seen. IMPRESSION: Suboptimal study without saddle central pulmonary embolism. Peripheral pulmonary emboli c annot be excluded on this study. Mild cardiomegaly without suspicious acute pulmonary process.
== END | disposition home or self-care (01) ==
LOC: RADCTMAIN 14:15
PROVIDERS: ATTEND Physician Assistant Medical
DX: I51.7 Cardiomegaly (principal); R00.0 Tachycardia, unspecified; I10 Essential (primary) hypertension; Z86.16 Personal history of COVID-19
CPT/HCPCS: 82565; 84520; 71275; 36415; Q9967

== ENCOUNTER → 2021-02-02 | Day surgery (SDC) | payer MEDICARE ==
[2021-01-28 15:23] VITALS: BMI 47.8
[~2021-02-02] MED LIST changes: -ACETAMINOPHEN TAB 500 MG TAB PO ONE; +ALPRAZolam 0.25 MG TAB PO PRN; +ALPRAZolam 0.5 MG TAB PO PRN; +ASPIRIN 325 MG TAB PO SCH; +ASPIRIN 325 MG TAB PO STA; +ATORVASTATIN 40 MG TAB PO SCH; -DEXAMETHASONE SOD PHOSPHATE 10 MG/ML 1 ML VIAL IV ONE; +ESCITALOPRAM 20 MG TAB PO SCH; +HEPARIN SODIUM 1,000 UN/ML (10ML VL) IV ONE; +HEPARIN SODIUM 1,000 UN/ML (10ML VL) ONE; +HEPARIN SODIUM,PORCINE 10,000 UNIT in SODIUM CHLORIDE 0.9% 1,000 ML IRRIGATION PRN; +HEPARIN SODIUM,PORCINE 2,500 UNIT in SODIUM CHLORIDE 0.9% 250 ML IRRIGATION PRN; +IOPAMIDOL-370 125ML BTL INJ ONE; +ISOSORBIDE MONONITRATE ER 30 MG TAB.ER.24H PO SCH; +LEVOTHYROXINE 88 MCG TAB PO SCH; -LIDOCAINE 1% 20 ML VIAL (10MG/ML) FOR IV START INTRADERMA PRN; +LIDOCAINE 1% INJ 10MG/ML (20 ML MDV) ONE; +LIDOCAINE 1% INJ 10MG/ML (20 ML MDV) SQ ONE; +LOSARTAN-HCTZ 50-12.5 MG 1 EACH TAB PO SCH; -MELOXICAM 7.5 MG TAB PO ONE; -MIDAZOLAM 2 MG/2 ML VIAL IV PRN; +NITROGLYCERIN SL TABS 0.4 MG TAB SUBLINGUAL PRN; +NON FORMULARY DRUG (Cholecalciferol 1,000 UNIT Tab) PO SCH; -ONDANSETRON 4 MG/2 ML VIAL IVP ONE; +PIOGLITAZONE 30 MG TAB PO SCH; -ROPIVACAINE 246.25 MG, EPINEPHrine 0.5 MG, KETOROLAC 30 MG, cloNIDine HCL/PF 80 MCG, WA... MISCELLANE ONE; +RX INFO: IV CONTRAST WAS GIVEN 1 EACH MISC MISCELLANE PRN; +SODIUM CHLORIDE 0.9% 1,000 ML IV SCH; +SODIUM CHLORIDE 0.9% 1,000 ML in EMPTY BAG 1 BAG IV SCH; -TRANEXAMIC ACID 1,000 MG in SODIUM CHLORIDE 0.9% 100 ML IVPB ONE; +VERAPAMIL 2.5 MG/ML 2 ML AMP ONE; +VERAPAMIL SYRINGE (5 MG/10 ML) INTRAARTER ONE; -ceFAZolin 3 GM in SODIUM CHLORIDE 0.9% 100 ML IVPB ONE; +fentaNYL (PF) 50 MCG/ML 2 ML AMP IV ONE; -fentaNYL (PF) 50 MCG/ML 2 ML AMP IV PRN; +fentaNYL (PF) 50 MCG/ML 2 ML AMP ONE
[2021-02-02 07:16] LABS: Glucose,Whole Blood 130 mg/dL (75-99)
[2021-02-02 07:22] VITALS: TEMP 98
[2021-02-02 10:00] VITALS: BP 110/52; PULSE 76; RESP 14
--- NOTE | 2021-02-02 11:25 | CC ---
CARDIAC CATHETERIZATION REPORT Mrs. Johns is a 65-year-old female with known history of hypertension, hyperlipidemia, diabetes mellitus who has been complaining of episodes of chest discomfort. She is scheduled to undergo shoulder surgery and underwent myocardial perfusion imaging that revealed partial reversible anterior wall defect. In view of that, recommendation was made regarding cardiac catheterization. The procedure as well as risks and complications were discussed with the patient, who was in full understanding and agreement. PROCEDURE DESCRIPTION: The patient was brought to photographic laboratory technician in the fasting, semi-sedated state after receiving fentanyl and Benadryl and achieving a moderate conscious sedated state. Using Xylocaine anesthesia and Seldinger technique, a 6-Honduran sheath was introduced in the right radial artery. Selective right and left coronary angiography was performed using 5- Honduran 3-1/2 bend right and left Martin catheters. Multiple views were taken of the arteries, including hemiaxial views. Following that, 5-Honduran tight pigtail catheter was introduced into the left ventricle and left ventricular end-diastolic pressure was calculated. Following that, catheters and sheaths were removed. Hemostasis was obtained with deployment of a TR band. There was no immediate complication. Patient was returned to her room in stable condition. Of note, the patient received 5000 units of intravenous heparin as well as intra-arterial verapamil. FINDINGS: LEFT MAIN: This is a large-sized vessel bifurcating into left circumflex and left anterior descending artery. Left main coronary artery has no evidence of high-grade stenosis. LEFT ANTERIOR DESCENDING ARTERY: This is a large-sized vessel reaching to the apex with a wrap around the apex segment giving rise to 2 diagonal branches. Left anterior descending artery as well as its branches have no evidence of obstructive coronary artery disease. LEFT CIRCUMFLEX: This is a large codominant vessel giving rise to 2 obtuse marginal branches, distally giving rise to a PLV. The left circumflex as well as its branches have no evidence of obstructive coronary artery disease. RIGHT CORONARY ARTERY: This is a moderate-sized vessel, codominant, giving rise to a small PDA. The right coronary artery as well as its branches have no evidence of obstructive coronary artery disease. LEFT VENTRICULOGRAM: Left ventriculogram was not performed. HEMODYNAMICS: There was no gradient across the aortic valve. The left ventricular end- diastolic pressure is 12 to 16 mmHg. CONCLUSION: 1. Normal coronary arteries. 2. Codominant system. RECOMMENDATIONS: In view of findings and anatomy, I have recommended continued medical therapy with the aggressive coronary risk modifications that have been initiated. I see no evidence of significant obstructive coronary artery disease, and the patient should be able to proceed with her scheduled for orthopedic surgery. Those findings and recommendations were discussed with the patient and her family, who are in full understanding and agreement. Duration of sedation was 21 minutes. TRACEE / SHANICEN: [id number] /
== END | disposition home or self-care (01) ==
LOC: CATHCVL 06:28
PROVIDERS: ATTEND Internal Medicine Interventional Cardiology
DX: R06.00 Dyspnea, unspecified (principal); R94.39 Abnormal result of other cardiovascular function study; R07.89 Other chest pain; E11.9 Type 2 diabetes mellitus without complications; Z20.822 Contact with and (suspected) exposure to COVID-19; I10 Essential (primary) hypertension; E78.2 Mixed hyperlipidemia; Z90.710 Acquired absence of both cervix and uterus; E78.00 Pure hypercholesterolemia, unspecified; Z96.659 Presence of unspecified artificial knee joint; Z82.49 Family history of ischemic heart disease and other diseases of the circulatory system; Z87.891 Personal history of nicotine dependence; G47.33 Obstructive sleep apnea (adult) (pediatric); Z79.890 Hormone replacement therapy; Z79.84 Long term (current) use of oral hypoglycemic drugs; Z79.82 Long term (current) use of aspirin; Z79.899 Other long term (current) drug therapy
CPT/HCPCS: 93458; 87635; J2001; J3010; J1644; Q9967

== ENCOUNTER → 2023-03-15 | Outpatient (CLI) | payer MEDICARE ==
--- NOTE | 2023-03-16 22:16 | XR ---
EXAMINATION TYPE: XR cervical spine comp DATE OF EXAM: 03/15/2023 COMPARISON: None HISTORY: Cervicalgia TECHNIQUE: 5 view cervical spine FINDINGS: Odontoid is visualized appears unremarkable. Some facet degenerative changes are likely pre sent. Left foramen are patent. There is some mild narrowing of C3-4 C4-5 C5-6-7 right foramen. Prever tebral space is normal. Posterior spinal lamellar line is intact. Some mild diffuse loss of disc heig ht is present greatest at C6-7. IMPRESSION: 1. Diffuse mild degenerative disc changes through the cervical spine. 2. Mild foraminal narrowing through right cervical foramen discussed above
== END | disposition home or self-care (01) ==
LOC: RADXRYALE 15:01
PROVIDERS: ATTEND Physician Assistant Medical
DX: M50.30 Other cervical disc degeneration, unspecified cervical region (principal)
CPT/HCPCS: 72050

== ENCOUNTER 2023-07-25 11:50 | Emergency (ER) | payer MEDICARE ==
[2023-07-25 12:11] VITALS: TEMP 97.5
--- NOTE | 2023-07-25 13:12 | ED ---
General Adult HPI - General Chief complaint: Dizziness Stated complaint: sob, headache Time Seen by Provider: 07/25/23 12:45 Source: patient, RN notes reviewed, old records reviewed Mode of arrival: ambulatory Limitations: no limitations - History of Present Illness Initial comments: This is a 67-year-old female who presents to the emergency department complaining that she is dizzy. Patient states she woke about 7:00 this morning and everything was moving she had to sit back down in bed. Patient is moving her head deftly makes her symptoms worse. Patient also complains of a left- sided headache. Patient denies any chest pain or palpitations she states she had a little tightness earlier today in the chest but no pain. Patient denies any difficulty breathing shortness of breath. Patient has noticed there is been increased swelling to her legs and she has noticed a recent weight gain. Patient denies any recent fever chills or cough. Patient states as long she sits still and does not move she does not have much dizziness. Patient states this morning she also took her blood pressure was mildly elevated at 176/96 - Related Data Home Medications Medication Instructions Recorded Confirmed Atorvastatin [Lipitor] 40 mg PO HS 07/06/18 07/25/23 Losartan/Hydrochlorothiazide 1 tab PO DAILY 07/06/18 07/25/23 [Hyzaar 100-25 Tablet] Cholecalciferol [Vitamin D3 (125 125 mcg PO DAILY 07/25/23 07/25/23 Mcg = 5000 Iu)] DULoxetine HCL [Cymbalta] 60 mg PO DAILY 07/25/23 07/25/23 Levothyroxine Sodium [Synthroid] 100 mcg PO DAILY 07/25/23 07/25/23 Pioglitazone [Actos] 45 mg PO DAILY 07/25/23 07/25/23 Ubidecarenone [Coenzyme Q10] 100 mg PO DAILY 07/25/23 07/25/23 Vit C/E/Zn/Coppr/Lutein/Zeaxan 1 cap PO BID 07/25/23 07/25/23 [Preservision Areds 2 Softgel] glipiZIDE [Glucotrol] 5 mg PO DAILY 07/25/23 07/25/23 Previous Rx's Medication Instructions Recorded Meclizine [Antivert] 25 mg PO TID #20 tab 07/25/23 Allergies Allergy/AdvReac Type Severity Reaction Status Date / Time No Known Allergies Allergy Verified 07/25/23 16:41 Review of Systems ROS Statement: Those systems with pertinent positive or pertinent negative responses have been documented in the HPI. ROS Other: All systems not noted in ROS Statement are negative. Past Medical History Past Medical History: Cancer, Chest Pain / Angina, Diabetes Mellitus, Hyperlipidemia, Hypertension, Osteoarthritis (OA), Sleep Apnea/CPAP/BIPAP, Thyro id Disorder Additional Past Medical History / Comment(s): hx MELENOMA-no chemo,uses cpap History of Any Multi-Drug Resistant Organisms: None Reported Past Surgical History: Adenoidectomy, Hysterectomy, Joint Replacement, Tons illectomy Additional Past Surgical History / Comment(s): TOTAL LEFT KNEE, SKIN LESION- MELENOMA, TOTAL RIGHT KNEE Past Anesthesia/Blood Transfusion Reactions: No Reported Reaction Additional Past Anesthesia/Blood Transfusion Reaction / Comment(s): no hx blood transfusion Past Psychological History: Anxiety Smoking Status: Never smoker Past Alcohol Use History: None Reported Past Drug Use History: None Reported - Past Family History Mother Family Medical History: Cancer Father Family Medical History: Cancer General Exam - General Exam Comments Initial Comments: GENERAL: Patient is well-developed and well-nourished. Patient is nontoxic and well- hydrated and is in no acute distress. ENT: Neck is soft and supple. No significant lymphadenopathy is noted. Oropharynx is clear. Moist mucous membranes. Neck has full range of motion without eliciting any pain. EYES: The sclera were anicteric and conjunctiva were pink and moist. Extraocular movements were intact and pupils were equal round and reactive to light. Eyelids were unremarkable. PULMONARY: Unlabored respirations. Good breath sounds bilaterally. No audible rales rhonchi or wheezing was noted. CARDIOVASCULAR: There is a regular rate and rhythm without any murmurs gallops or rubs. ABDOMEN: Soft and nontender with normal bowel sounds. SKIN: Skin is clear with no lesions or rashes and otherwise unremarkable. NEUROLOGIC: Patient is alert and oriented x3. Cranial nerves II through XII are grossly intact. Motor and sensory are also intact. Normal speech, volume and content. Symmetrical smile. Finger-nose testing is normal bilaterally. MUSCULOSKELETAL: Normal extremities with adequate strength and full range of motion. 1+ edema bilaterally LYMPHATICS: No significant lymphadenopathy is noted PSYCHIATRIC: Normal psychiatric evaluation. Limitations: no limitations Course Vital Signs 07/25/23 07/25/23 11:57 14:10 Temperature 97.5 F L Pulse Rate 78 69 Respiratory 20 18 Rate Blood Pressure 179/78 165/93 O2 Sat by Pulse 97 99 Oximetry Medical Decision Making - Medical Decision Making Was pt. sent in by a medical professional or institution (, [facility], [facility], urgent care, hospital, or fdc...) When possible be specific @ -No Did you speak to anyone other than the patient for history (EMS, parent, family, police, friend...)? What history was obtained from this source @ -No Did you review nursing and triage notes (agree or disagree)? Why? @ -I reviewed and agree with nursing and triage notes Were old charts reviewed (outside hosp., previous admission, EMS record, old EKG, old radiological studies, urgent care reports/EKG's, fdc records)? Report findings @ -No old charts were reviewed Differential Diagnosis (chest pain, altered mental status, abdominal pain women, abdominal pain men, vaginal bleeding, weakness, fever, dyspnea, syncope, headache, dizziness, GI bleed, back pain, seizure, CVA, palpatations, mental health, musculoskeletal)? @ -Differential Dyspnea: Coronary syndrome, arrhythmia, tamponade, asthma, COPD, pulmonary embolism, pneumonia, pneumothorax, pulmonary effusion, anaphylaxis, diabetic ketoacidosis, flailed chest, pulmonary contusion, diaphragmatic rupture, anemia, neurom uscular, this is not meant to be an all-inclusive list. EKG interpreted by me (3pts min.). @ -As above X-rays interpreted by me (1pt min.). @ -Chest x-ray shows no acute abdomen CT interpreted by me (1pt min.). @ -CT of the brain shows no acute abnormality U/S interpreted by me (1pt. min.). @ -None done What testing was considered but not performed or refused? (CT, X-rays, U/S, labs)? Why? @ -None What meds were considered but not given or refused? Why? @ -None Did you discuss the management of the patient with other professionals (professionals i.e. STEPHANIE Kaur, [facility], lab, RT, psych nurse, sexual assault social worker, railway signal technician, teacher, marine safety officer, spring encaser)? Give summary @ -No Was smoking cessation discussed for >3mins.? @ -No Was critical care preformed (if so, how long)? @ -No Were there social determinants of health that impacted care today? How? (Homelessness, low income, unemployed, alcoholism, drug addiction, transportation, low edu. Level, literacy, decrease access to med. care, skilled nursing, rehab)? @ -No Was there de-escalation of care discussed even if they declined (Discuss DNR or withdrawal of care, Hospice)? DNR status @ -No What co-morbidities impacted this encounter? (DM, HTN, Smoking, COPD, CAD, Cancer, CVA, ARF, Chemo, Hep., AIDS, mental health diagnosis, sleep apnea, morbid obesity)? @ -None Was patient admitted / discharged? Hospital course, mention meds given and route, prescriptions, significant lab abnormalities, going to OR and other pertinent info. @ -Patient was given Antivert in the ER and she was feeling better from a dizziness standpoint. Patient's blood pressure was mildly elevated so I gave her hydralazine 10. Patient states she will cut back on her sodium get some EWA hose and elevate her legs when she can. Patient will take the Antivert as prescribed. Patient will start monitoring her blood pressure more closely Undiagnosed new problem with uncertain prognosis? @ -No Drug Therapy requiring intensive monitoring for toxicity (Heparin, Nitro, Insulin, Cardizem)? @ -No Were any procedures done? @ -No Diagnosis/symptom? @ -Vertigo Acute, or Chronic, or Acute on Chronic? @ -Acute Uncomplicated (without systemic symptoms) or Complicated (systemic symptoms)? @ -Complicated Side effects of treatment? @ -No Exacerbation, Progression, or Severe Exacerbation? @ -No Poses a threat to life or bodily function? How? (Chest pain, [place], [place], pneumonia, PE, COPD, DKA, ARF, appy, cholecystitis, CVA, Diverticulitis, Homicidal, Suicidal, threat to staff... and all critical care pts) @ -No Diagnosis/symptom? @ -Hypertension Acute, or Chronic, or Acute on Chronic? @ -Acute Uncomplicated (without systemic symptoms) or Complicated (systemic symptoms)? @ -Complicated Side effects of treatment? @ -None Exacerbation, Progression, or Severe Exacerbation] @ -No Poses a threat to life or bodily function? @ -No - Lab Data Result diagrams: 07/25/23 14:07 07/25/23 14:07 Lab Results 07/25/23 07/25/23 07/25/23 Range/Units 14:07 14:07 14:07 WBC 8.2 (3.8-10.6) k/uL RBC 4.25 (3.80-5.40) m/uL Hgb 13.5 (11.4-16.0) gm/dL Hct 40.9 (34.0-46.0) % MCV 96.2 (80.0-100.0) fL MCH 31.7 (25.0-35.0) pg MCHC 32.9 (31.0-37.0) g/dL RDW 12.8 (11.5-15.5) % Plt Count 228 (150-450) k/uL MPV 8.0 Neutrophils % 68 % Lymphocytes % 21 % Monocytes % 4 % Eosinophils % 4 % Basophils % 1 % Neutrophils # 5.6 (1.3-7.7) k/uL Lymphocytes # 1.7 (1.0-4.8) k/uL Monocytes # 0.4 (0-1.0) k/uL Eosinophils # 0.3 (0-0.7) k/uL Basophils # 0.1 (0-0.2) k/uL PT 10.8 (10.0-12.5) sec INR 1.0 (<1.2) APTT 23.7 (22.0-30.0) sec Sodium 139 (137-145) mmol/L Potassium 3.7 (3.5-5.1) mmol/L Chloride 103 (98-107) mmol/L Carbon Dioxide 33 H (22-30) mmol/L Anion Gap 3 mmol/L BUN 13 (7-17) mg/dL Creatinine 0.55 (0.52-1.04) mg/dL Est GFR (CKD-EPI)AfAm >90 (>60 ml/min/1.73 sqM) Est GFR (CKD-EPI)NonAf >90 (>60 ml/min/1.73 sqM) Glucose 139 H (74-99) mg/dL Calcium 8.9 (8.4-10.2) mg/dL Magnesium 1.8 (1.6-2.3) mg/dL Total Bilirubin 0.8 (0.2-1.3) mg/dL AST 21 (14-36) U/L ALT 20 (4-34) U/L Alkaline Phosphatase 86 (38-126) U/L Troponin I (0.000-0.034) ng/mL Total Protein 6.1 L (6.3-8.2) g/dL Albumin 3.5 (3.5-5.0) g/dL 07/25/23 Range/Units 14:07 WBC (3.8-10.6) k/uL RBC (3.80-5.40) m/uL Hgb (11.4-16.0) gm/dL Hct (34.0-46.0) % MCV (80.0-100.0) fL MCH (25.0-35.0) pg MCHC (31.0-37.0) g/dL RDW (11.5-15.5) % Plt Count (150-450) k/uL MPV Neutrophils % % Lymphocytes % % Monocytes % % Eosinophils % % Basophils % % Neutrophils # (1.3-7.7) k/uL Lymphocytes # (1.0-4.8) k/uL Monocytes # (0-1.0) k/uL Eosinophils # (0-0.7) k/uL Basophils # (0-0.2) k/uL PT (10.0-12.5) sec INR (<1.2) APTT (22.0-30.0) sec Sodium (137-145) mmol/L Potassium (3.5-5.1) mmol/L Chloride (98-107) mmol/L Carbon Dioxide (22-30) mmol/L Anion Gap mmol/L BUN (7-17) mg/dL Creatinine (0.52-1.04) mg/dL Est GFR (CKD-EPI)AfAm (>60 ml/min/1.73 sqM) Est GFR (CKD-EPI)NonAf (>60 ml/min/1.73 sqM) Glucose (74-99) mg/dL Calcium (8.4-10.2) mg/dL Magnesium (1.6-2.3) mg/dL Total Bilirubin (0.2-1.3) mg/dL AST (14-36) U/L ALT (4-34) U/L Alkaline Phosphatase (38-126) U/L Troponin I <0.012 (0.000-0.034) ng/mL Total Protein (6.3-8.2) g/dL Albumin (3.5-5.0) g/dL Disposition Clinical Impression: Vertigo, Hypertension Disposition: HOME SELF-CARE Condition: Good Instructions (If sedation given, give patient instructions): Vertigo (ED), Hypertension (ED) Prescriptions: Meclizine [Antivert] 25 mg PO TID #20 tab Is patient prescribed a controlled substance at d/c from ED?: No Referrals: Solo Blevins DO [Primary Care Provider] - 1-2 days Time of Disposition: 17:15
[2023-07-25] MEDS: MECLIZINE 25 MG TAB PO STA (14:21)
[2023-07-25 14:32] LABS: Prothrombin Time 10.8 sec (10.0-12.5)
[2023-07-25 14:33] LABS: Partial Thromboplastin Time 23.7 sec (22.0-30.0)
[2023-07-25 14:53] LABS: ALT 20 U/L (4-34); AST 21 U/L (14-36); African American GFR (CKD) >90 (>60 ml/min/1.73 sqM); Albumin 3.5 g/dL (3.5-5.0); Alkaline Phosphatase 86 U/L (38-126); Anion Gap 3 mmol/L; Blood Urea Nitrogen 13 mg/dL (7-17); Calcium 8.9 mg/dL (8.4-10.2); Carbon Dioxide 33 mmol/L (22-30); Chloride 103 mmol/L (98-107); Glucose 139 mg/dL (74-99); Magnesium 1.8 mg/dL (1.6-2.3); Non-African American GFR(CKD) >90 (>60 ml/min/1.73 sqM); Potassium 3.7 mmol/L (3.5-5.1); Sodium 139 mmol/L (137-145); Total Bilirubin 0.8 mg/dL (0.2-1.3); Total Protein 6.1 g/dL (6.3-8.2)
[2023-07-25 14:54] VITALS: RESP 18
[2023-07-25 15:04] LABS: Basophils # (A) 0.1 k/uL (0-0.2); Basophils % (A) 1 %; Eosinophils # (A) 0.3 k/uL (0-0.7); Eosinophils % (A) 4 %; HCT 40.9 % (34.0-46.0); HGB 13.5 gm/dL (11.4-16.0); Lymphocytes # (A) 1.7 k/uL (1.0-4.8); Lymphocytes % (A) 21 %; MCH 31.7 pg (25.0-35.0); MCHC 32.9 g/dL (31.0-37.0); MCV 96.2 fL (80.0-100.0); Monocytes # (A) 0.4 k/uL (0-1.0); Monocytes % (A) 4 %; Neutrophils # (A) 5.6 k/uL (1.3-7.7); Neutrophils % (A) 68 %; Platelet Count 228 k/uL (150-450); RBC 4.25 m/uL (3.80-5.40); RDW 12.8 % (11.5-15.5); WBC 8.2 k/uL (3.8-10.6)
--- NOTE | 2023-07-25 15:08 | CT ---
EXAMINATION TYPE: CT brain wo con DATE OF EXAM: 07/25/2023 COMPARISON: None HISTORY: htn, dizziness CT DLP: 1148.[address] of the brain was performed. The ventricles, basal cisterns and sulci overlying the cerebral convexities demonstrate mild enlargem ent. There is no evidence for intracranial hemorrhage or sulcal effacement. There is decreased attenuation about the periventricular white matter and deep white matter of both c erebral hemispheres, compatible with chronic small vessel ischemia. Differential diagnosis does inclu de demyelination. No mass effects are seen.No midline shift. Osseous calvarium is intact. If symptoms persist consider MRI. IMPRESSION: 1. Age related atrophic and chronic small vessel ischemic change without acute intracranial process s een at this time.
--- NOTE | 2023-07-25 15:31 | XR ---
EXAMINATION TYPE: XR chest 2V DATE OF EXAM: 07/25/2023 COMPARISON: 08/06/2020 HISTORY: 67-year-old female with chest pain and shortness of breath TECHNIQUE: AP and lateral views FINDINGS: Heart mildly enlarged. Mild vascular prominence. There is underpenetration related to large body habi tus and portable technique which casts hazy densities. No kyle consolidation or pleural effusion. Le ft shoulder arthroplasty. IMPRESSION: Portable exam further limited by large body habitus and underpenetration. Correlate to exclude mild p ulmonary vascular congestion.
[2023-07-25] MEDS: hydrALAZINE HCL 20 MG/ML 1 ML VIAL IVP STA (17:32)
[2023-07-25 18:14] VITALS: BP 167/72; PULSE 75
== END 2023-07-25 17:42 | disposition home or self-care (01) ==
LOC: EC 11:50
DX: R42 Dizziness and giddiness (principal); I10 Essential (primary) hypertension
CPT/HCPCS: 36415; 80053; 83735; 84484; 85025; 85610; 85730; 71046; 70450; 99284; 96374; 96375; J0360; J3360

== ENCOUNTER 2023-07-31 14:15 | Emergency (ER) | payer MEDICARE ==
--- NOTE | 2023-07-31 14:31 | ED ---
Chest Pain HPI - General Source: patient, RN notes reviewed Mode of arrival: ambulatory Limitations: no limitations <Kerrie Thrasher - Last Filed: 07/31/23 14:30> <Nicolás Cedeño - Last Filed: 07/31/23 18:05> - General Stated Complaint: Abn labs Time Seen by Provider: 07/31/23 14:30 - History of Present Illness Initial Comments: Quick note: 67-year-old female presented to the ER with a chief complaint of a chest heaviness. Patient sent by PCP. Patient also was endorsing shortness of breath. Patient states her left leg has also been swollen. Denies any history of blood clots and is not currently on blood thinners. (Kerrie Thrasher) This is a 67-year-old female who presents emergency department after having gone to her primary medical care doctor's office. She went to the office to pay a bill when she got there the office after she looks short of breath with a sat her down EKG because it showed PVCs and she stated she did feel short of breath after having walked into the building they presented to the emergency department. Patient denied chest pain to me even though in triage she indicated chest heaviness to the physician assistant quality manager she adamantly denied chest heaviness to me. Patient denies any palpitations. Patient denies any fever chills or cough. Patient denies abdominal pain patient has nausea vomiting diarrhea. (Nicolás Cedeño) - Related Data Home Medications Medication Instructions Recorded Confirmed Atorvastatin [Lipitor] 40 mg PO HS 07/06/18 07/31/23 Losartan/Hydrochlorothiazide 1 tab PO DAILY 07/06/18 07/31/23 [Hyzaar 100-25 Tablet] Cholecalciferol [Vitamin D3 (125 125 mcg PO DAILY 07/25/23 07/31/23 Mcg = 5000 Iu)] DULoxetine HCL [Cymbalta] 60 mg PO DAILY 07/25/23 07/31/23 Levothyroxine Sodium [Synthroid] 100 mcg PO DAILY 07/25/23 07/31/23 Pioglitazone [Actos] 45 mg PO DAILY 07/25/23 07/31/23 Ubidecarenone [Coenzyme Q10] 100 mg PO DAILY 07/25/23 07/31/23 Vit C/E/Zn/Coppr/Lutein/Zeaxan 1 cap PO BID 07/25/23 07/31/23 [Preservision Areds 2 Softgel] glipiZIDE [Glucotrol] 5 mg PO DAILY 07/25/23 07/31/23 Furosemide [Lasix] 40 mg PO DAILY 07/31/23 07/31/23 Allergies Allergy/AdvReac Type Severity Reaction Status Date / Time dapagliflozin [From [facility]] AdvReac gets a Verified 07/31/23 16:28 yeast infection Review of Systems ROS Other: All systems not noted in ROS Statement are negative. <Kerrie Thrasher - Last Filed: 07/31/23 14:30> ROS Other: All systems not noted in ROS Statement are negative. <Nicolás Cedeño - Last Filed: 07/31/23 18:05> ROS Statement: Those systems with pertinent positive or pertinent negative responses have been documented in the HPI. Past Medical History Past Medical History: Cancer, Chest Pain / Angina, Diabetes Mellitus, Hyperlipidemia, Hypertension, Osteoarthritis (OA), Sleep Apnea/CPAP/BIPAP, Thyroid Disorder Additional Past Medical History / Comment(s): hx MELENOMA-no chemo,uses cpap History of Any Multi-Drug Resistant Organisms: None Reported Past Surgical History: Adenoidectomy, Hysterectomy, Joint Replacement, Tonsillectomy Additional Past Surgical History / Comment(s): TOTAL LEFT KNEE, SKIN LESION- MELENOMA, TOTAL RIGHT KNEE Past Anesthesia/Blood Transfusion Reactions: No Reported Reaction Additional Past Anesthesia/Blood Transfusion Reaction / Comment(s): no hx blood transfusion Past Psychological History: Anxiety Smoking Status: Never smoker Past Alcohol Use History: None Reported Past Drug Use History: None Reported - Past Family History Mother Family Medical History: Cancer Father Family Medical History: Cancer <Kerrie Thrasher - Last Filed: 07/31/23 14:30> General Exam <Kerrie Thrasher - Last Filed: 07/31/23 14:30> <Nicolás Cedeño - Last Filed: 07/31/23 18:05> - General Exam Comments Initial Comments: Visual Physical Exam Vital signs reviewed General: Well-appearing, nontoxic, no acute distress. Head: Normocephalic, atraumatic Eyes: PERRLA, EOMI ENT: Airway patent Chest: Nonlabored breathing Skin: No visual rash, normal skin tone Neuro: Alert and oriented 3 Musculoskeletal: No gross abnormalities (Kerrie Thrasher) GENERAL: Patient is well-developed and well-nourished. Patient is nontoxic and well- hydrated and is in no acute distress. ENT: Neck is soft and supple. No significant lymphadenopathy is noted. Oropharynx is clear. Moist mucous membranes. Neck has full range of motion without eliciting any pain. EYES: The sclera were anicteric and conjunctiva were pink and moist. Extraocular movements were intact and pupils were equal round and reactive to light. Eyelids were unremarkable. PULMONARY: Unlabored respirations. Good breath sounds bilaterally. No audible rales rhonchi or wheezing was noted. CARDIOVASCULAR: There is a regular rate and rhythm without any murmurs gallops or rubs. ABDOMEN: Soft and nontender with normal bowel sounds. SKIN: Skin is clear with no lesions or rashes and otherwise unremarkable. NEUROLOGIC: Patient is alert and oriented x3. Cranial nerves II through XII are grossly i ntact. Motor and sensory are also intact. Normal speech, volume and content. Symmetrical smile. MUSCULOSKELETAL: Normal extremities with adequate strength and full range of motion. No lower extremity swelling or edema. No calf tenderness. LYMPHATICS: No significant lymphadenopathy is noted PSYCHIATRIC: Normal psychiatric evaluation. (Nicolás Cedeño) Course Vital Signs 07/31/23 15:04 Temperature 98.2 F Pulse Rate 79 Respiratory 20 Rate Blood Pressure 160/74 O2 Sat by Pulse 97 Oximetry Chest Pain [facility] <Kerrie Thrasher - Last Filed: 07/31/23 14:30> <Nicolás Cedeño - Last Filed: 07/31/23 18:05> - [facility] I performed the quick note portion of this chart. Electronically signed by Kerrie Thrasher PA-C (Kerrie Thrasher) EKG is interpreted by myself. EKG shows sinus rhythm with occasional PVC at 76 bpm parables 192 QRS is 116 QT interval 411 QTc is 442. EKG shows no ST segment elevation or depression Was pt. sent in by a medical professional or institution (STEPHANIE Kaur, [employer], urgent care, hospital, or correction...) When possible be specific @ -Primary medical care doctor sent the patient Did you speak to anyone other than the patient for history (EMS, parent, family, police, friend...)? What history was obtained from this source @ -No Did you review nursing and triage notes (agree or disagree)? Why? @ -I reviewed and agree with nursing and triage notes Were old charts reviewed (outside hosp., previous admission, EMS record, old EKG, old radiological studies, urgent care reports/EKG's, correction records)? Report findings @ -No old charts were reviewed Differential Diagnosis (chest pain, altered mental status, abdominal pain women, abdominal pain men, vaginal bleeding, weakness, fever, dyspnea, syncope, headache, dizziness, GI bleed, back pain, seizure, CVA, palpatations, mental health, musculoskeletal)? @ -Differential Dyspnea: Coronary syndrome, arrhythmia, tamponade, asthma, COPD, pulmonary embolism, pneumonia, pneumothorax, pulmonary effusion, anaphylaxis, diabetic ketoacidosis, flailed chest, pulmonary contusion, diaphragmatic rupture, anemia, neuromuscular, this is not meant to be an all-inclusive list. EKG interpreted by me (3pts min.). @ -As above X-rays interpreted by me (1pt min.). @ -Chest x-ray shows no acute abnormality CT interpreted by me (1pt min.). @ -None done U/S interpreted by me (1pt. min.). @ -None done What testing was considered but not performed or refused? (CT, X-rays, U/S, labs)? Why? @ -None What meds were considered but not given or refused? Why? @ -None Did you discuss the management of the patient with other professionals ( professionals i.e. , PA, [employer], lab, RT, psych nurse, aids social worker, machine coremaker, teacher, transportation officer, case assembler)? Give summary @ -No Was smoking cessation discussed for >3mins.? @ -No Was critical care preformed (if so, how long)? @ -No Were there social determinants of health that impacted care today? How? (Homelessness, low income, unemployed, alcoholism, drug addiction, transportation, low edu. Level, literacy, decrease access to med. care, penitentiary, rehab)? @ -No Was there de-escalation of care discussed even if they declined (Discuss DNR or withdrawal of care, Hospice)? DNR status @ -No What co-morbidities impacted this encounter? (DM, HTN, Smoking, COPD, CAD, Cancer, CVA, ARF, Chemo, Hep., AIDS, mental health diagnosis, sleep apnea, morbid obesity)? @ -None Was patient admitted / discharged? Hospital course, mention meds given and route, prescriptions, significant lab abnormalities, going to OR and other pertinent info. @ -Patient's lab work showed no acute normality. Chest x-ray showed no acute normality. Patient occasionally through a PVC. Patient got up and ambulated without problem patient was oxygenating in the high 90s after ambulation and heart rate was 102 and quickly came down into the 70s. Patient was in no distress at any time and never experienced any chest pain. Undiagnosed new problem with uncertain prognosis? @ -No Drug Therapy requiring intensive monitoring for toxicity (Heparin, Nitro, Insulin, Cardizem)? @ -No Were any procedures done? @ -No Diagnosis/symptom? @ -PVC Acute, or Chronic, or Acute on Chronic? @ -Acute Uncomplicated (without systemic symptoms) or Complicated (systemic symptoms)? @ -Uncomplicated Side effects of treatment? @ -No Exacerbation, Progression, or Severe Exacerbation? @ -No Poses a threat to life or bodily function? How? (Chest pain, [place], [place], pneumonia, PE, COPD, DKA, ARF, appy, cholecystitis, CVA, Diverticulitis, Homicidal, Suicidal, threat to staff... and all critical care pts) @ -No Diagnosis/symptom? @ -Dyspnea Acute, or Chronic, or Acute on Chronic? @ -Acute Uncomplicated (without systemic symptoms) or Complicated (systemic symptoms)? @ -Complicated Side effects of treatment? @ -None Exacerbation, Progression, or Severe Exacerbation] @ -No Poses a threat to life or bodily function? @ -No (Nicolás Cedeño) Disposition <Kerrie Thrasher - Last Filed: 07/31/23 14:30> Is patient prescribed a controlled substance at d/c from ED?: No Time of Disposition: 18:05 <Nicolás Cedeño - Last Filed: 07/31/23 18:05> Clinical Impression: PVC (premature ventricular contraction), Dyspnea Disposition: HOME SELF-CARE Instructions (If sedation given, give patient instructions): Dyspnea (ED), Premature Ventricular Contractions (ED) Referrals: Solo Blevins DO [Primary Care Provider] - 1-2 days
--- NOTE | 2023-07-31 15:47 | XR ---
EXAMINATION TYPE: XR chest 2V DATE OF EXAM: 07/31/2023 COMPARISON: 07/25/2023 INDICATION: Chest pain TECHNIQUE: Frontal and lateral views of the chest are obtained. FINDINGS: The heart size is mildly prominent. The pulmonary vasculature is normal. The lungs are clear. No suspicious consolidations evident. Left shoulder prosthesis is present. IMPRESSION: 1. No acute pulmonary process. 2. Mild stable cardiomegaly.
[2023-07-31 16:11] LABS: Basophils # (A) 0.1 k/uL (0-0.2); Basophils % (A) 1 %; Eosinophils # (A) 0.4 k/uL (0-0.7); Eosinophils % (A) 4 %; HCT 43.3 % (34.0-46.0); HGB 14.1 gm/dL (11.4-16.0); Lymphocytes # (A) 1.5 k/uL (1.0-4.8); Lymphocytes % (A) 19 %; MCH 31.1 pg (25.0-35.0); MCHC 32.5 g/dL (31.0-37.0); MCV 95.8 fL (80.0-100.0); Mean Platelet Volume 8.4; Monocytes # (A) 0.5 k/uL (0-1.0); Monocytes % (A) 6 %; Neutrophils # (A) 5.4 k/uL (1.3-7.7); Neutrophils % (A) 68 %; Platelet Count 254 k/uL (150-450); RBC 4.52 m/uL (3.80-5.40); RDW 12.9 % (11.5-15.5); WBC 7.8 k/uL (3.8-10.6)
[2023-07-31 16:23] LABS: ALT 20 U/L (4-34); AST 23 U/L (14-36); African American GFR (CKD) >90 (>60 ml/min/1.73 sqM); Albumin 3.9 g/dL (3.5-5.0); Alkaline Phosphatase 87 U/L (38-126); Anion Gap 5 mmol/L; Blood Urea Nitrogen 12 mg/dL (7-17); Carbon Dioxide 27 mmol/L (22-30); Chloride 107 mmol/L (98-107); Glucose 198 mg/dL (74-99); Magnesium 1.9 mg/dL (1.6-2.3); Non-African American GFR(CKD) >90 (>60 ml/min/1.73 sqM); Potassium 3.5 mmol/L (3.5-5.1); Sodium 139 mmol/L (137-145); Total Bilirubin 0.8 mg/dL (0.2-1.3); Total Protein 6.5 g/dL (6.3-8.2)
[2023-07-31 16:27] LABS: INR 0.9 (<1.2); Partial Thromboplastin Time 23.5 sec (22.0-30.0); Prothrombin Time 10.3 sec (10.0-12.5)
[2023-07-31 18:41] VITALS: BP 138/78; PULSE 102; RESP 18; TEMP 97.9
== END 2023-07-31 18:14 | disposition home or self-care (01) ==
LOC: EC 14:15
DX: I49.3 Ventricular premature depolarization (principal); Z88.8 Allergy status to other drugs, medicaments and biological substances
CPT/HCPCS: 36415; 71046; 80053; 83735; 84484; 85025; 85379; 85610; 85730; 93005; 99285